=== PATIENT | male | born 1945 | race Two or more races ===

== ENCOUNTER 2023-12-21 20:22 | Inpatient (IN) | payer MEDICARE, MEDICAID ==
[~2023-12-21] VITALS: Ht 167.6 cm; Wt 57.6 kg
[2023-12-21 22:21] LABS: COVID AG,FIA SOURCE NASAL SWAB
[2023-12-21 22:27] LABS: BASOPHILS % (AUTO) 1.1 % (0.0-2.0); HEMATOCRIT 35.3 % (41-53); HEMOGLOBIN 11.8 g/dL (13.5-17.5); LYMPHOCYTES # (AUTO) 1.3 K/uL (1.0-4.8); LYMPHOCYTES % (AUTO) 21.3 % (22.0-44.0); MEAN CORPUSCULAR HEMOGLOBIN 27.1 pg (26.0-34.0); MEAN CORPUSCULAR HGB CONC 33.3 G/dL (31.0-37.0); MEAN CORPUSCULAR VOLUME 81 fL (80-100); MONOCYTES # (AUTO) 0.5 K/uL (0.1-1.0); MONOCYTES % (AUTO) 7.3 % (2.0-9.0); NEUTROPHILS # (AUTO) 4.3 K/uL (1.8-7.7); NEUTROPHILS % (AUTO) 68.3 % (40.0-70.0); PLATELET COUNT (AUTO) 246 K/uL (150-450); RED BLOOD CELL COUNT(AUTO) 4.35 MIL/uL (4.50-5.90); RED CELL DISTRIBUTION WIDTH 14.9 % (11.5-14.5); WHITE BLOOD COUNT (AUTO) 6.2 K/uL (4.5-11.0)
[2023-12-21 22:44] LABS: ANION GAP 10 mmol/L (8-16); CALCIUM, TOTAL 9.1 mg/dL (8.8-10.5); CARBON DIOXIDE 25 mmol/L (22-29); CHLORIDE 105 mmol/L (98-107); CREATININE 0.64 mg/dL (0.60-1.30); GLOMERULAR FILTR. RATE CALC > 60 mL/min (>60); GLUCOSE,RANDOM 88 mg/dL (70-110); POTASSIUM 3.3 mmol/L (3.5-5.1); SODIUM SERUM 140 mmol/L (136-145); UREA NITROGEN, BLOOD 18 mg/dL (7-18)
[2023-12-21 22:50] LABS: ALANINE AMINOTRANSFERASE 14 U/L (12-78); ALBUMIN 3.6 g/dL (3.4-5.0); ALKALINE PHOSPHATASE 85 U/L (46-116); ASPARTATE AMINOTRANSFERASE 15 U/L (15-37); BILIRUBIN,TOTAL 0.3 mg/dL (0.1-1.0); TOTAL PROTEIN, SERUM 6.8 g/dL (6.4-8.2)
[2023-12-21 23:00] LABS: ALCOHOL, BLOOD (SERUM) < 3 mg/dL (0-10)
[2023-12-21 23:07] LABS: SARS-COV2 (COVID) ANTIGEN,FIA Negative (Negative)
[2023-12-22] MEDS: ZOLPIDEM TARTRATE 10 MG TABLET PO PRN (02:49)
[2023-12-22] MEDS: LORazepam 2 MG TABLET PO PRN (02:57)
[2023-12-22] MEDS: HALOPERIDOL 5 MG TABLET PO PRN (02:57)
[2023-12-22 03:58] LABS: APPEARANCE,URINE CLEAR (CLEAR); BILIRUBIN,URINE NEGATIVE (NEGATIVE); COLOR,URINE LIGHT YELLOW (YELLOW); GLUCOSE, URINE (UA) TRACE mg/dL (NEGATIVE); KETONES,URINE NEGATIVE (NEGATIVE); LEUKOCYTE ESTERASE ,URINE NEGATIVE (NEGATIVE); NITRATE,URINE NEGATIVE (NEGATIVE); OCCULT BLOOD,URINE SMALL (NEGATIVE); PH,URINE 5.5 (5.0-8.0); PH,URINE DRUG SCREEN 5.5 (5.0-8.0); PROTEIN,URINE NEGATIVE (NEGATIVE); SPECIFIC GRAVITIY, URINE 1.021 (1.003-1.030); UROBILINOGEN,URINE <=1.0 mg/dL (<=1.0)
[2023-12-22 04:04] LABS: ALCOHOL, URINE DRUG SCREEN NEGATIVE (NEGATIVE); AMPHET/METH SCREEN,URINE NEGATIVE (NEGATIVE); BARBITURATE SCREEN, URINE NEGATIVE (NEGATIVE); BENZODIAZEPINES SCREEN,URINE NEGATIVE (NEGATIVE); CANNABINOID SCREEN,URINE NEGATIVE (NEGATIVE); COCAINE SCREEN,URINE NEGATIVE (NEGATIVE); METHADONE SCREEN, URINE NEGATIVE (NEGATIVE); OPIATE SCREEN,URINE NEGATIVE (NEGATIVE); PHENCYCLIDINE SCREEN,URINE NEGATIVE (NEGATIVE)
[2023-12-22 04:29] LABS: BACTERIA,URINE None Seen /HPF (None Seen); SQUAMOUS EPITHELIAL CELL,UR Few /LPF (None Seen); WBC,URINE None Seen /HPF (0-5)
[2023-12-23 01:03] VITALS: BP 160/76; PULSE 55; RESP 18; TEMP 97.5; O2SAT 98
[2023-12-23] MEDS ORDERED: CloNIDine HCL 0.1 MG TABLET PO PRN (07:00)
[2023-12-23] MEDS ORDERED: NICOTINE 14 MG/24 HOUR PATCH TD PRN (07:00)
[2023-12-23] MEDS ORDERED: MAGNESIUM HYDROXIDE SUSPENSION 30 ML UDCUP PO PRN (07:00)
[2023-12-23] MEDS ORDERED: MAG HYDROX/ALUMINUM HYD/SIMETH ES 30 ML SUSPENSION UDCUP PO PRN (07:00)
[2023-12-23] MEDS ORDERED: ACETAMINOPHEN 325 MG TABLET PO PRN (07:00)
[2023-12-23] MEDS ORDERED: ALBUTEROL SULFATE HFA 90 MCG/PUFF 8 GM INHALER IH PRN (07:00)
[2023-12-23] MEDS ORDERED: ONDANSETRON HCL 4 MG TABLET PO PRN (07:00)
[2023-12-23] MEDS ORDERED: DOCUSATE SODIUM 100 MG CAPSULE PO PRN (07:00)
[2023-12-23] MEDS ORDERED: LOPERAMIDE HCL 2 MG CAPSULE PO PRN (07:00)
[2023-12-23] MEDS ORDERED: PETROLATUM,WHITE 28 GM JELLY TP PRN (07:00)
[2023-12-23] MEDS ORDERED: IBUPROFEN 400 MG TABLET PO PRN (07:00)
[2023-12-23] MEDS ORDERED: GuaiFENesin/D-METHORPHAN [SUGAR-FREE] 200-20MG/10 ML SYRUP UDCUP PO PRN (07:00)
[2023-12-23 08:20] VITALS: BP 142/60; PULSE 76; RESP 18; TEMP 98; O2SAT 97
[2023-12-23] MEDS: INFLUENZA VIRUS VACCINE QVS 2023-24 (6MO+)/PF 60 MCG/0.5 ML SYRINGE IM. ONE (11:45)
[2023-12-23] MEDS: PNEUMOCOCCAL VACCINE POLYVALENT 0.5 ML SYRINGE [PPSV23] IM. ONE (11:45)
[2023-12-23] MEDS ORDERED: OLAN10TA74 PO (12:18)
[2023-12-23] MEDS ORDERED: OLAN2.5T29 PO (12:18)
[2023-12-23] MEDS ORDERED: TRAZ-252 PO (12:18)
[2023-12-23] MEDS ORDERED: DONE-51 PO (12:18)
[2023-12-23] MEDS: VALPROIC ACID 250 MG/5 ML SOLUTION UDCUP PO SCH (12:39)
[2023-12-23 20:32] VITALS: BP 112/56; PULSE 64; RESP 16; TEMP 97.6; O2SAT 98
[2023-12-23] MEDS ORDERED: OLANZapine 2.5 MG TABLET PO SCH (21:00)
[2023-12-23] MEDS: DONEPEZIL HCL 5 MG TABLET PO SCH (21:38)
[2023-12-23] MEDS: OLANZapine 5 MG TABLET PO SCH (21:38)
[2023-12-23] MEDS: TraZODone HCL 50 MG TABLET PO SCH (21:38)
[2023-12-24 08:35] VITALS: BP 148/71; PULSE 81; RESP 18; TEMP 97.4; O2SAT 98
[2023-12-24 08:51] LABS: CHOL/HDL RATIO 2.2 (4.2-7.3); POTASSIUM 3.6 mmol/L (3.5-5.1); THYROID STIMULATING HORMONE 1.29 uIU/mL (0.36-3.74)
[2023-12-24 20:40] VITALS: BP 101/60; PULSE 66; RESP 18; TEMP 98; O2SAT 96
[2023-12-25 08:00] VITALS: BP 100/60; PULSE 79; RESP 16; TEMP 98.1; O2SAT 96
[2023-12-26 02:17] VITALS: BP 126/62; PULSE 86; RESP 18; TEMP 98.3; O2SAT 95
[2023-12-26 08:24] VITALS: BP 139/89; PULSE 92; RESP 18; TEMP 97.6; O2SAT 95
[2023-12-26 20:13] VITALS: BP 114/56; PULSE 77; RESP 19; TEMP 97.5; O2SAT 99
[2023-12-26 20:17] VITALS: BP 114/56; PULSE 78; RESP 16; TEMP 97.6; O2SAT 96
[2023-12-27 08:28] VITALS: BP 128/60; PULSE 63; RESP 17; TEMP 97.6; O2SAT 98
[2023-12-27 21:35] VITALS: RESP 18; TEMP 97.8
[2023-12-28] MEDS: LORazepam 1 MG TABLET PO PRN (00:07)
[2023-12-28 10:35] VITALS: BP 121/66; PULSE 78; RESP 18; TEMP 97.6; O2SAT 97
[2023-12-29] MEDS: BACITRACIN 28 GM OINTMENT TP SCH (09:01)
[2023-12-29 15:30] VITALS: BP 135/64; PULSE 86; RESP 18; TEMP 97.7
[2023-12-29 21:28] VITALS: BP 142/68; PULSE 82; RESP 17; TEMP 97.6; O2SAT 99
[2023-12-30 08:09] VITALS: BP 117/66; PULSE 78; RESP 16; TEMP 97.4; O2SAT 95
[2023-12-30 20:45] VITALS: BP 117/64; PULSE 78; RESP 16; TEMP 97.6; O2SAT 98
[2023-12-31 08:57] VITALS: BP 138/69; PULSE 90; RESP 16; TEMP 98; O2SAT 99
[2023-12-31 20:21] VITALS: BP 123/65; PULSE 84; RESP 18; TEMP 98.2; O2SAT 98
[2024-01-01 09:22] VITALS: BP 134/58; PULSE 65; RESP 18; TEMP 97.4; O2SAT 97
[2024-01-01 20:34] VITALS: BP 108/56; PULSE 80; RESP 18; TEMP 97.6; O2SAT 98
[2024-01-02 08:19] VITALS: BP 138/84; PULSE 75; RESP 17; TEMP 97.9; O2SAT 100
[2024-01-02] MEDS ORDERED: HALOPERIDOL LACTATE 5 MG/ML VIAL ONE (10:24)
[2024-01-02] MEDS ORDERED: LORazepam 2 MG/ML VIAL ONE (10:25)
[2024-01-02] MEDS ORDERED: DiphenhydrAMINE HCL 50 MG/ML VIAL ONE (10:25)
[2024-01-02] MEDS: LORazepam 2 MG/ML VIAL IM ONE (10:53)
[2024-01-02] MEDS: HALOPERIDOL LACTATE 5 MG/ML VIAL IM ONE (10:53)
[2024-01-02] MEDS: DiphenhydrAMINE HCL 50 MG/ML VIAL IM ONE (10:54)
[2024-01-02 20:25] VITALS: BP 140/67; PULSE 73; RESP 19; TEMP 97.3; O2SAT 97
[2024-01-03 13:09] VITALS: BP 105/65; PULSE 82; RESP 18; TEMP 98; O2SAT 96
[2024-01-03 20:20] VITALS: BP 103/57; PULSE 87; RESP 20; TEMP 98.1; O2SAT 97
[2024-01-04 15:49] VITALS: BP 131/64; PULSE 78; RESP 19; TEMP 98; O2SAT 98
[2024-01-04 22:04] VITALS: BP 122/62; PULSE 80; RESP 18; TEMP 97.8; O2SAT 96
[2024-01-05 07:15] LABS: GLUCOMETER DEV NAME(LOC) POC.BV; POC SARS-COV2 AG, FIA NEGATIVE (NEGATIVE)
[2024-01-05 08:15] VITALS: BP 115/71; PULSE 81; RESP 16; TEMP 97.8; O2SAT 99
[2024-01-05] MEDS ORDERED: VALP250S23 PO (09:06)
[2024-01-05] MEDS ORDERED: DONE-52 PO (09:15)
[2024-01-05] MEDS ORDERED: SENN-376 PO (09:18)
[2024-01-05] MEDS ORDERED: AMLO2.5T96 PO (09:19)
[2024-01-05] MEDS ORDERED: HALOPERIDOL LACTATE 5 MG/ML VIAL ONE (10:57)
[2024-01-05] MEDS ORDERED: DiphenhydrAMINE HCL 50 MG/ML VIAL ONE (10:57)
[2024-01-05] MEDS ORDERED: LORazepam 2 MG/ML VIAL ONE (10:57)
[2024-01-05] MEDS: DiphenhydrAMINE HCL 50 MG/ML VIAL IM ONE (11:21)
[2024-01-05] MEDS: LORazepam 2 MG/ML VIAL IM ONE (11:22)
[2024-01-05] MEDS: HALOPERIDOL LACTATE 5 MG/ML VIAL IM ONE (11:23)
[2024-01-05 21:42] VITALS: BP 125/70; PULSE 90; RESP 17; TEMP 97.5; O2SAT 95
[2024-01-06 08:50] VITALS: BP 113/65; PULSE 75; RESP 16; TEMP 97.9; O2SAT 95
[2024-01-06 20:30] VITALS: BP 104/59; PULSE 72; RESP 17; TEMP 97.8; O2SAT 97
[2024-01-07] MEDS: HALOPERIDOL LACTATE 5 MG/ML VIAL IM ONE (00:15)
[2024-01-07] MEDS: LORazepam 2 MG/ML VIAL IM ONE (00:16)
[2024-01-07] MEDS: DiphenhydrAMINE HCL 50 MG/ML VIAL IM ONE (00:16)
[2024-01-07 00:30] VITALS: BP 117/62; PULSE 77; RESP 18; TEMP 98.1; O2SAT 96
[2024-01-07 11:30] VITALS: BP 118/62; PULSE 83; RESP 18; TEMP 97.6; O2SAT 98
[2024-01-07] MEDS: RisperiDONE 1 MG TABLET PO SCH (20:52)
[2024-01-07 21:22] VITALS: BP 129/59; PULSE 88; RESP 17; TEMP 97.2; O2SAT 97
[2024-01-08 08:52] VITALS: BP 100/60; PULSE 62; RESP 17; TEMP 98.1; O2SAT 98
[2024-01-08 20:00] VITALS: RESP 18; TEMP 97.5
[2024-01-09 13:45] VITALS: BP 152/71; PULSE 82; RESP 18; TEMP 98; O2SAT 98
[2024-01-09] MEDS ORDERED: HALOPERIDOL LACTATE 5 MG/ML VIAL ONE (14:51)
[2024-01-09] MEDS ORDERED: DiphenhydrAMINE HCL 50 MG/ML VIAL ONE (14:52)
[2024-01-09] MEDS ORDERED: LORazepam 2 MG/ML VIAL ONE (14:52)
[2024-01-09] MEDS: HALOPERIDOL LACTATE 5 MG/ML VIAL IM ONE (15:04)
[2024-01-09] MEDS: LORazepam 2 MG/ML VIAL IM ONE (15:04)
[2024-01-09] MEDS: DiphenhydrAMINE HCL 50 MG/ML VIAL IM ONE (15:04)
[2024-01-09 16:39] VITALS: BP 159/79; PULSE 74; RESP 16; TEMP 98; O2SAT 99
[2024-01-09 22:07] VITALS: BP 144/74; PULSE 72; RESP 16; TEMP 97; O2SAT 97
[2024-01-10 10:54] VITALS: BP 108/59; PULSE 69; RESP 16; TEMP 97.9; O2SAT 98
[2024-01-10 22:41] VITALS: BP 158/74; PULSE 91; RESP 17; TEMP 97.7; O2SAT 97
[2024-01-11 08:39] VITALS: BP 156/78; PULSE 78; RESP 18; TEMP 98; O2SAT 96
[2024-01-11 20:42] VITALS: BP 139/70; PULSE 79; TEMP 98; O2SAT 94
[2024-01-12 10:09] VITALS: BP 150/81; PULSE 77; RESP 17; TEMP 97.8; O2SAT 98
[2024-01-12 20:05] VITALS: BP 141/84; PULSE 87; RESP 18; TEMP 97.3; O2SAT 97
[2024-01-13 10:15] VITALS: BP 124/78; PULSE 85; RESP 18; TEMP 97.3; O2SAT 97
[2024-01-13 20:52] VITALS: BP 145/92; PULSE 92; RESP 19; TEMP 96.9; O2SAT 96
[2024-01-14 08:19] VITALS: BP 146/66; PULSE 74; RESP 18; TEMP 97.7; O2SAT 9
[2024-01-14] MEDS ORDERED: LORazepam 2 MG/ML VIAL ONE (17:31)
[2024-01-14] MEDS ORDERED: HALOPERIDOL LACTATE 5 MG/ML VIAL ONE (17:31)
[2024-01-14] MEDS ORDERED: DiphenhydrAMINE HCL 50 MG/ML VIAL ONE (17:32)
[2024-01-14] MEDS: LORazepam 2 MG/ML VIAL IM ONE (17:50)
[2024-01-14] MEDS: HALOPERIDOL LACTATE 5 MG/ML VIAL IM ONE (17:51)
[2024-01-14] MEDS: DiphenhydrAMINE HCL 50 MG/ML VIAL IM ONE (17:51)
[2024-01-14 19:15] VITALS: BP 156/84; PULSE 76; RESP 15; TEMP 97.7; O2SAT 98
[2024-01-14 20:57] VITALS: BP 148/78; PULSE 69; RESP 17; TEMP 98.4; O2SAT 97
[2024-01-15 09:33] VITALS: BP 177/84; PULSE 57; RESP 16; TEMP 97.1; O2SAT 99
[2024-01-15] MEDS ORDERED: DiphenhydrAMINE HCL 50 MG/ML VIAL ONE (19:46)
[2024-01-15] MEDS ORDERED: LORazepam 2 MG/ML VIAL ONE (19:46)
[2024-01-15] MEDS ORDERED: HALOPERIDOL LACTATE 5 MG/ML VIAL ONE (19:47)
[2024-01-15] MEDS: DiphenhydrAMINE HCL 50 MG/ML VIAL IM ONE (19:54)
[2024-01-15] MEDS: LORazepam 2 MG/ML VIAL IM ONE (19:54)
[2024-01-15] MEDS: HALOPERIDOL LACTATE 5 MG/ML VIAL IM ONE (19:56)
[2024-01-15 20:18] VITALS: BP 147/78; PULSE 91; RESP 16; TEMP 97; O2SAT 95
[2024-01-15 21:00] VITALS: BP 123/60; PULSE 82; RESP 16; O2SAT 99
[2024-01-16 13:26] VITALS: BP 117/64; PULSE 80; RESP 17; TEMP 97.6; O2SAT 97
[2024-01-17 09:52] VITALS: BP 128/71; PULSE 76; RESP 20; TEMP 96.9; O2SAT 100
[2024-01-17 20:00] VITALS: BP 131/70; PULSE 94; RESP 18; TEMP 97.6
== END 2024-01-18 11:55 | DRG 885 ==
LOC: EMS 20:25 → 3EX 12-22 14:40 → B2X 12-22 14:41
PROVIDERS: ADMIT Psychiatry & Neurology Child & Adolescent Psychiatry; ATTEND Psychiatry & Neurology Child & Adolescent Psychiatry
PROC: GZHZZZZ Group Psychotherapy (ICD-10-PCS; principal; 2023-12-23)
DX: F25.0 Schizoaffective disorder, bipolar type (principal); F01.518 Vascular dementia, unspecified severity, with other behavioral disturbance; E44.0 Moderate protein-calorie malnutrition; E87.6 Hypokalemia; I10 Essential (primary) hypertension; D50.9 Iron deficiency anemia, unspecified; Z20.822 Contact with and (suspected) exposure to COVID-19; F43.10 Post-traumatic stress disorder, unspecified; G47.00 Insomnia, unspecified; F32.A Depression, unspecified; Z79.899 Other long term (current) drug therapy; Z68.20 Body mass index [BMI] 20.0-20.9, adult
CPT/HCPCS: 80053; 80061; 80164; 80307; 81001; 83036; 84132; 84443; 85025; 87081; 99285; G0480; J1200; J1630; J2060